=== PATIENT | female | born 1950 | race African-American/Black ===

== ENCOUNTER 2019-09-07 22:12 | Emergency (ER) | payer MEDICARE, OTHER ==
[~2019-09-07] VITALS: Ht 170.2 cm; Wt 91.0 kg
[~2019-09-07 22:12] MED LIST: ATROPINE SULFATE 1MG/10ML SYR ONE; CALCIUM CHLORIDE 1GM/10ML SYR IV ONE; DEXTROSE 50% WATER 50ML VIAL IV ONE; EPINEPHRINE 0.1MG/ML (1:10,000) 10ML SYR ONE; LIDOCAINE HCL 2% 5ML SYRINGE IV ONE; SODIUM BICARBONATE 8.4% MEQ/ML 50ML VIAL IV ONE
[2019-09-07 22:14] VITALS: BP 0/0
[2019-09-07] MEDS ORDERED: EPINEPHRINE 0.1MG/ML (1:10,000) 10ML SYR ONE (22:29)
[2019-09-07] MEDS ORDERED: SODIUM BICARBONATE 8.4% 1 MEQ/ML 50ML SYR IV ONE (22:34)
== END 2019-09-08 03:21 | disposition expired ==
LOC: ER 22:12
DX: I46.9 Cardiac arrest, cause unspecified (principal); E66.01 Morbid (severe) obesity due to excess calories; Z68.31 Body mass index [BMI] 31.0-31.9, adult; Z86.11 Personal history of tuberculosis
CPT/HCPCS: 31500; 92950; 99285; J0461; J3490